=== PATIENT | female | born 1980 | race Caucasian/White ===

== ENCOUNTER 2023-05-07 23:09 | Emergency (ER) | payer OTHER ==
[2023-05-07 23:15] VITALS: BP 152/85; PULSE 84; RESP 18; TEMP 98; BMI 32.3
[2023-05-07] MEDS ORDERED: IBUPROFEN 600 MG TABLET (FP) PO ONE (23:56)
[2023-05-07] MEDS ORDERED: LIDOCAINE VISCOUS 2% ORAL/TOP 15 ML UNIT-DOSE CUP ONE (23:58)
[2023-05-08] MEDS: IBUPROFEN 600 MG TABLET (FP) PO ONE
[2023-05-08] MEDS: LIDOCAINE VISCOUS 2% ORAL/TOP 15 ML UNIT-DOSE CUP MM ONE
[2023-05-08] MEDS: PENICILLIN V POTASSIUM 500 MG TABLET PO ONE (00:11)
[2023-05-08] MEDS ORDERED: GABAPENTIN 100 MG CAPSULE ONE (00:55)
[2023-05-08] MEDS: GABAPENTIN 100 MG CAPSULE PO ONE (00:56)
== END 2023-05-08 01:11 | disposition home or self-care (01) ==
LOC: JER 23:09
DX: K08.89 Other specified disorders of teeth and supporting structures (principal); G50.0 Trigeminal neuralgia
CPT/HCPCS: 99283-25